=== PATIENT | female | born 1990 | race Caucasian/White ===

== ENCOUNTER 2016-06-17 09:46 | Emergency (ER) | payer OTHER ==
[~2016-06-17] VITALS: Ht 157.5 cm; Wt 61.2 kg
[~2016-06-17 09:46] MED LIST: CIPRO 500MG TA500 MG PO; DEPO-PROVER150 MG/ML IM; FLU VACCINE 0.0.5 ML IM; IBU800 MG PO; IBUPROFEN800 MG PO; LATUDA40 M1 PO; OMEPRAZOLE40 MG PO; PERCOCET 325 MG1 TA2 PO; PRENATAL VITAMI1 TAB PO; PRENATAL1 TA2 PO; VISTARIL50 MG PO; ZOFRAN ODT4 MG PO
[2016-06-17 09:51] VITALS: BP 113/75
--- NOTE | 2016-06-17 10:05 | ED NECK/BACK PAIN COMPLAINT ---
History of Present Illness General Chief Complaint: Low Back Pain/Injury Stated Complaint: LBP/CHRONIC Source: patient Exam Limitations: no limitations Vital Signs & Intake/Output Vital Signs & Intake/Output Vital Signs Date Time Temp Pulse Resp B/P Pulse O2 O2 Flow FiO2 Ox Delivery Rate 06/17 0951 98.8 109 18 113/75 97 Room Air Room Air Allergies Coded Allergies: midazolam (SEVERE EMOTIONAL REACTION PER PT REPORT 09/01/15) Reconcile Medications Cyclobenzaprine HCl 10 MG TABLET 1 TAB PO QPM PRN muscle spasms LURASIDONE HCL (Latuda) 40 MG TAB 1 TAB PO QPM MENTAL HEALTH (Reported) Oxycodone HCl/Acetaminophen (Percocet 5-325 MG Tablet) 5 MG-325 MG TABLET 1 TAB PO BID PRN pain Triage Note: TRIAGE: 26 Y/O FEMALE PRESENTS C/O 9/10 LOWER BACK PAIN X2 DAYS, WORSENING LAST NIGHT AFTER DANCING. REPORTS UNABLE TO LIFT SON THIS MORNING. * TEARS NOTED IN TRIAGE. Triage Nurses Notes Reviewed? yes : No Patient currently breastfeeds: No HPI: 26-year-old female arrived to triage to room 1 complaining of left low back pain has been worse the past 2 days. She reports that she has had the pain in the past intermittently for years and has never been seen or evaluated when the pain has come. She reports it is an achy, tightness, crampy type pain left lower back that was exacerbated by dancing last night and sitting in a car backed chair. She has been taking ibuprofen 800 mg for the past couple days with no relief. She lifted her son this morning which caused an increase in pain so she is here for evaluation. The pain is moderate to severe with no radiation. She denies any numbness, tingling, incontinence. Martha says that the pain is worse with bending twisting. Has been using rice packs with some relief. Past History Travel History Traveled to [place] past 21 day No Medical History Any Pertinent Medical History? 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 No Review of Systems Review of Systems Constitutional: Reports: no symptoms. Eyes: Reports: no symptoms. Ears, Nose, Throat, Mouth: Reports: no symptoms. Respiratory: Reports: no symptoms. Cardiovascular: Reports: no symptoms. Gastrointestinal/Abdominal: Reports: no symptoms. Musculoskeletal: Reports: see HPI, back pain. Skin: Reports: no symptoms. Neurological/Psychological: Reports: no symptoms. All Other Systems: Reviewed and Negative Physical Exam Physical Exam General Appearance: well developed/nourished, mild distress Head: atraumatic Eyes: Bilateral: PERRL, EOMI. Ears, Nose, Throat, Mouth: hearing grossly normal Neck: normal inspection, supple, full range of motion, normal alignment Respiratory: normal breath sounds, chest non-tender, no respiratory distress Cardiovascular: regular rate/rhythm Peripheral Pulses: 2+ radial (R), 2+ radial (L), 2+ tibialis posterior (R), 2+ tibialis posterior ( L), 2+ dorsalis pedis (R), 2+ dorsalis pedis (L) Gastrointestinal: soft, non-tender Back: normal inspection, muscle spasm (left low back see diagram) Extremities: normal range of motion Straight Leg Raising: Right: Negative. Left: Negative. Neurologic/Psych: awake, alert, oriented x 3, normal mood/affect Skin: intact, normal color, warm/dry Diagram Body: 1) Tenderness to palpation Progress Differential Diagnosis: myofascial strain Plan of Care: Current Medications Sig/Naa Start time Last Medication Dose Stop Time Status Admin Ketorolac 60 MG ONCE ONE 06/17 1015 UNVr Tromethamine 06/17 1016 (Toradol) Comments: Flexeril, Percocet and ibuprofen as needed for pain and muscle spasms she will continue the use of rice packs and heat to area and follow-up with her primary care provider this week. Martha does not display any neurological deficits or concerns in relation to her back pain. Departure Departure Time of Disposition: 1016 Disposition: HOME OR SELF CARE Condition: Stable Clinical Impression Primary Impression: Low back pain Qualifiers: Chronicity: acute Back pain laterality: left Sciatica presence: without sciatica Qualified Code: M54.5 - Low back pain Referrals: MELANIE PACE (PCP/Family) Additional Instructions: Please follow up with Melanie Pace APRN this week. Please continue ibuprofen 600-800 mg 3 times a day as needed for mild to moderate pain. Please take with food. Flexeril 10 mg to take at night only as needed for muscle spasms. Percocet twice a day as needed for more severe pain. Please do not drive or operate any machinery while taking Flexeril or Percocet. Please return to the emergency department for any worsening or concerning symptoms. Departure Forms: Customer Survey General Discharge Information Prescriptions: Current Visit Scripts Cyclobenzaprine HCl 1 TAB PO QPM PRN muscle spasms #6 TAB Oxycodone HCl/Acetaminophen (Percocet 5-325 MG Tablet) 1 TAB PO BID PRN pain #10 TAB
[2016-06-17] MEDS ORDERED: CYCLOBENZAPRINE10 M1 PO (10:17)
[2016-06-17] MEDS ORDERED: PERCOCET 5-3251 EACH PO (10:17)
== END 2016-06-17 10:28 ==
LOC: ERH 09:46
DX: M54.5 Low back pain (principal)
CPT/HCPCS: 96372; J1885

== ENCOUNTER 2016-09-07 12:36 | Emergency (ER) | payer OTHER ==
[~2016-09-07] VITALS: Ht 157.5 cm; Wt 62.6 kg
[~2016-09-07 12:36] MED LIST changes: +CYCLOBENZAPRINE10 M1 PO; +PERCOCET 5-3251 EACH PO
--- NOTE | 2016-09-07 13:27 | ED GI/GU/ABDOMINAL COMPLAINT ---
History of Present Illness General Chief Complaint: Abdominal Pain/Flank Pain Stated Complaint: VOMITTING,ABD PAIN Allergies Coded Allergies: midazolam (SEVERE EMOTIONAL REACTION PER PT REPORT 09/01/15) Reconcile Medications Cyclobenzaprine HCl 10 MG TABLET 1 TAB PO QPM PRN muscle spasms LURASIDONE HCL (Latuda) 40 MG TAB 1 TAB PO QPM MENTAL HEALTH (Reported) Oxycodone HCl/Acetaminophen (Percocet 5-325 MG Tablet) 5 MG-325 MG TABLET 1 TAB PO BID PRN pain Triage Note: PT TO ED FOR ABD PAIN RADIATING TO HER BACK AND VOMITING X 3 DAYS, SEEN AT [facility] AND WAS REFERRED TO ED FOR R/O APPENDICITIS. 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 Tetanus Vaccine: 07/25/15 Surgical History Surgical History: none Psychosocial History Who do you live with Friend What is your primary language Belizean Tobacco Use: Current Daily Use Daily Tobacco Use Amount/Type: => 5 Cigarettes daily ETOH Use: denies use Illicit Drug Use: denies illicit drug use Family History Family History, If Any: BROTHER FHx: bipolar disorder MOTHER FHx: depression Progress Plan of Care: Orders Procedure Date/time Status LIPASE 09/07 1328 Active COMPREHENSIVE METABOLIC PANEL 09/07 1328 Active CBC WITHOUT DIFFERENTIAL 09/07 1328 Active URINE 09/07 1304 Complete URINALYSIS 09/07 1304 Complete Laboratory Tests 09/07/16 1300: Urine Color YEL, Urine Clarity CLEAR, Urine pH 6.0, Ur Specific [place] 1.010, Urine Protein NEG, Urine Ketones NEG, Urine Nitrite NEG, Urine Bilirubin NEG, Urine Urobilinogen 0.2, Ur Leukocyte Esterase NEG, Ur Microscopic EXAM NOT REQUIRED, Urine Hemoglobin NEG, Urine Glucose NEG, Urine Test NEGATIVE Departure Departure Condition: Stable Referrals: HANK PACE (PCP/Family) Departure Forms: Customer Survey General Discharge Information
--- NOTE | 2016-09-07 13:41 | ED GI/GU/ABDOMINAL COMPLAINT ---
History of Present Illness General Chief Complaint: Abdominal Pain/Flank Pain Stated Complaint: VOMITTING,ABD PAIN Source: patient, old records Exam Limitations: no limitations Vital Signs & Intake/Output Vital Signs & Intake/Output Vital Signs Date Time Temp Pulse Resp B/P Pulse O2 O2 Flow FiO2 Ox Delivery Rate 09/07 1639 96.9 94 18 135/92 98 Room Air 09/07 1330 97.4 72 20 109/72 97 Room Air Allergies Coded Allergies: midazolam (SEVERE EMOTIONAL REACTION PER PT REPORT 09/01/15) Reconcile Medications Hyoscyamine (Levsin) 0.125 MG TABLET 1 TAB PO Q4 PRN ABDOMINAL DISCOMFORT Lurasidone HCl (Latuda) 40 MG TABLET 1 TAB PO QPM MENTAL HEALTH (Reported) Ondansetron (Zofran Odt) 4 MG TAB.RAPDIS 1 TAB SL TID PRN NAUSEA Triage Note: PT TO ED FOR ABD PAIN RADIATING TO HER BACK AND VOMITING X 3 DAYS, SEEN AT [facility] AND WAS REFERRED TO ED FOR R/O APPENDICITIS. Triage Nurses Notes Reviewed? yes ? n Is pt currently ? No Onset: Gradual Timing: no prior history Quality/Severity: moderate, sharpness Severity Numbers: 8 Location: generalized abdomen, right lower quadrant Radiation: RLQ Activities at Onset: none Prior Abdominal Problems: none Past Sexual History: Unobtainable at this time No Modifying Factors: none Modifying Factors: Worsens With: palpation. HPI: Patient is a 26-year-old female presenting to the emergency department with chief complaint of periumbilical and right lower quadrant abdominal pain mostly going on for the past 24 hours. She reports associated nausea or vomiting. This preceded by diarrhea. Diarrhea was nonbloody and nonbilious. Last bowel movement was this morning and normal. Denies any urinary frequency or urgency or dysuria. Denies fevers or chills. She saw her FIRE TRUCK DRIVER today who did a transvaginal and transabdominal ultrasound will told her everything looked well and told her to the emergency department to rule out appendicitis. Denies taking anything at home to help with symptoms. Nothing seems to make it better or worse. No sick contacts or recent travel. No recent antibiotic use. (KAROLINE LAWLER,LINDA) Past History Travel History Traveled to [place] past 21 day No Medical History Any Pertinent Medical History? 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 No (LINDA MILLER) Review of Systems Review of Systems Constitutional: Reports: no symptoms. Comments Review of systems: See HPI, All other systems negative. Constitutional, no chills fever or weight loss HEENT: No visual changes no sore throat no congestion Cardiovascular: No chest pain ,palpitation , orthopnea or ankle swelling Skin, no jaundice no rashes Respiratory: No dyspnea cough sputum or hemoptysis GI: Positive nausea, vomiting, diarrhea : No dysuria No hematuria Muscle skeletal: no back pain, no neck pain, Neurologic: No numbness no confusion NO LAN Psych: No stress anxiety or depression,. Heme/endocrine: No bruising no bleeding no polyuria or polydipsia Immunology: No splenectomy or history of AIDS (LINDA MILLER) Physical Exam Physical Exam General Appearance: well developed/nourished, no apparent distress, alert, awake , comfortable Gastrointestinal: normal bowel sounds, soft, tenderness Comments: Well-developed well-nourished person in no acute distress HEENT: Pupils equally round and reactive to light and accommodation. Nose is atraumatic. Neck: Normal inspection Back: Nontender, no CVA tenderness. Full range of motion Cardiovascular: Regular rate and rhythms no murmurs rubs or gallops, normal JVP Respiratory: Chest nontender. No respiratory distress.breath sounds clear to auscultation bilaterally Abdomen: Soft, tender to palpation in the periumbilical region, also right lower quadrant tenderness, mild guarding, no rebound tenderness. Positive psoas sign, Rovsing nontender to palpation over McBurney's point. Nondistended, no appreciable organomegaly. Normal bowel sounds. No ascites Extremity: No edema Neuro: Alert oriented x3 Skin: No appreciable rash on exposed skin, skin is warm and dry. Psych: Mood and affect is normal, memory and judgment is normal. Core Measures ACS in differential dx? No Severe Sepsis Present: No Septic Shock Present: No (KAROLINE LAWLER,LINDA) Progress Differential Diagnosis: appendicitis, biliary colic, diverticulitis, gastritis, ischemic bowel, inflamm bowel dis, ovarian cyst, ovarian torsion, pancreatitis, UTI/pyelo Plan of Care: Orders Procedure Date/time Status Add-on Test (ER Only) 09/07 1422 Active C-REACTIVE PROTEIN 09/07 1348 Complete LIPASE 09/07 1328 Complete COMPREHENSIVE METABOLIC PANEL 09/07 1328 Complete CBC WITHOUT DIFFERENTIAL 09/07 1328 Complete URINE 09/07 1304 Complete URINALYSIS 09/07 1304 Complete Laboratory Tests 09/07/16 1348: Anion Gap 8, Estimated GFR > 60, BUN/Creatinine Ratio 18.3, Glucose 77, Calcium 9.8, Total Bilirubin 0.6, AST 15, ALT 30, Alkaline Phosphatase 67, C-Reactive Prot, Quant < 0.5, Total Protein 7.2, Albumin 4.5, Globulin 2.7, Albumin/ Globulin Ratio 1.7, Lipase 77, CBC w Diff NO MAN DIFF REQ, RBC 5.12, MCV 87.6, MCH 29.6, RDW 12.7, MPV 8.8, Gran % 71.2, Lymphocytes % 22.8, Monocytes % 4.5, Eosinophils % 0.9, Basophils % 0.6, Absolute Granulocytes 6.2, Absolute Lymphocytes 2.0, Absolute Monocytes 0.4, Absolute Eosinophils 0.1, Absolute Basophils 0.1, PUBS MCHC 33.8 09/07/16 1300: Urine Color YEL, Urine Clarity CLEAR, Urine pH 6.0, Ur Specific [place] 1.010, Urine Protein NEG, Urine Ketones NEG, Urine Nitrite NEG, Urine Bilirubin NEG, Urine Urobilinogen 0.2, Ur Leukocyte Esterase NEG, Ur Microscopic EXAM NOT REQUIRED, Urine Hemoglobin NEG, Urine Glucose NEG, Urine Test NEGATIVE Diagnostic Imaging: Viewed by Me: CT Scan. Discussed w/RAD: CT Scan. Radiology Impression: PATIENT: CLAYTON GILL PRESENT AGE: 26 PATIENT ACCOUNT NO: [id number] : 91 LOCATION: [facility] ORDERING PHYSICIAN: LINDA LAWLER SERVICE DATE: 09/07/16 EXAM TYPE: CAT - CT ABD & PELVIS W IV CONTRAST EXAMINATION: CT ABDOMEN AND PELVIS WITH CONTRAST CLINICAL INFORMATION: Right lower quadrant abdominal pain. Evaluate for acute appendicitis. COMPARISON: None. TECHNIQUE: Multidetector volumetric imaging was performed of the abdomen and pelvis before and after the IV administration of 94 mL of Optiray 320 intravenous contrast. Sagittal and coronal reformatted images were obtained on the technologist's workstation. DLP: 259 mGy-cm FINDINGS: LUNG BASES: The visualized lung bases are unremarkable. LIVER, GALLBLADDER, AND BILIARY TREE: Evaluation of the liver parenchyma is notable for a 6 mm hypoattenuating nodule within the medial segment of the right hepatic lobe. This finding is incompletely characterized on this examination but may reflect a simple hepatic cyst. The liver is otherwise normal in size, shape, and attenuation. No biliary ductal dilatation is present. The gallbladder is unremarkable with no evidence of radiopaque gallstones, gallbladder wall thickening, or obvious pericholecystic inflammatory changes. PANCREAS: Unremarkable. SPLEEN: Unremarkable. ADRENAL GLANDS: Unremarkable. KIDNEYS AND URETERS: The kidneys are normal in size, shape, and attenuation. No hydronephrosis, hydroureter, or calculi seen. No perinephric stranding. BLADDER: Unremarkable. GASTROINTESTINAL TRACT: Normal anatomic orientation of the stomach relative to the duodenum. Normal caliber of abdominal and pelvic bowel loops, without evidence of obstruction or ileus. No circumferential bowel wall thickening with surrounding inflammatory changes to suggest an underlying infectious or inflammatory enterocolitis. Normal-appearing appendix within the right lower quadrant of the abdomen. No organizing intra-abdominal fluid collections or free intraperitoneal air. ABDOMINAL WALL: No significant hernia is appreciated. LYMPH NODES: No significant abdominal or pelvic adenopathy. VASCULAR: Patent abdominal vasculature. Normal course and caliber of the abdominal aorta and its branching vessels, without aneurysmal dilatation. PELVIC VISCERA: An intrauterine device is present within the endometrial cavity and appears appropriately positioned. There are subcentimeter hypoattenuating structures within the bilateral ovaries which may reflect ovarian cysts. A calcification along the right lateral aspect of the vagina is favored to represent a pelvic phlebolith. OSSEOUS STRUCTURES: No acute osseous abnormality. Normal alignment of the imaged thoracolumbar spine. IMPRESSION: No acute findings within the abdomen or pelvis to explain patient symptomatology. There is a normal-appearing appendix within the right lower quadrant of the abdomen. An intrauterine device is present within the endometrial canal and appears appropriately positioned. There are several small hypoattenuating structures within the bilateral ovaries which may reflect small ovarian cysts. No renal, ureteral or bladder stones are identified. DICTATED BY: NINFA GARCIA MD DATE/ TIME DICTATED:09/07/161533 COOK CANDY:VI DATE/TIME TRANSCRIBED: 09/07/161533 CONFIDENTIAL, DO NOT COPY WITHOUT APPROPRIATE AUTHORIZATION. < Electronically signed in Other Vendor System> SIGNED BY: NINFA GARCIA MD 09/07/16 1542 Initial ED EKG: none Comments: 09/07/2016 1:57:38 PM around patient is afebrile in no acute distress, she does have reproducible periumbilical and right lower quadrant tenderness to palpation. Medicated with IV fluids, IV Toradol. Declining nausea medication and time. Patient has CBC, CMP, CRP ordered. Pending labs patient may need CT scan. 09/07/2016 2:58:15 PM patient informed of all lab work results. Scnalon score is currently 4 meeting less likely to be appendicitis. Patient reporting worsening pain after Toradol and fluids. Patient will go for CT scan to rule out acute appendicitis. 09/07/2016 4:14:12 PM patient informed all lab results and imaging study results. Feeling better after morphine. Likely gastroenteritis. Patient will be treated symptomatically and follow with PCP. Educated on signs and symptoms TO return. (KAROLINE LAWLER,LINDA) Departure Departure Time of Disposition: 1609 Disposition: HOME OR SELF CARE Condition: Stable Clinical Impression Primary Impression: Gastroenteritis Referrals: HANK PACE (PCP/Family) Additional Instructions: Follow-up with your primary care physician call to make an appointment. Increase fluids. Clear liquid diet for the next 24-48 hours. Take Levsin and Zofran as prescribed with your symptoms. Return for worsening symptoms or concerns. Attaches a copy of her CAT scan results. ATIENT: CLAYTON GILL Wilmer PRESENT AGE: 26 PATIENT ACCOUNT NO: [id number] : 91 LOCATION: [facility] ORDERING PHYSICIAN: LINDA LAWLER SERVICE DATE: 09/07/16 EXAM TYPE: CAT - CT ABD & PELVIS W IV CONTRAST EXAMINATION: CT ABDOMEN AND PELVIS WITH CONTRAST CLINICAL INFORMATION: Right lower quadrant abdominal pain. Evaluate for acute appendicitis. COMPARISON: None. TECHNIQUE: Multidetector volumetric imaging was performed of the abdomen and pelvis before and after the IV administration of 94 mL of Optiray 320 intravenous contrast. Sagittal and coronal reformatted images were obtained on the technologist's workstation. DLP: 259 mGy-cm FINDINGS: LUNG BASES: The visualized lung bases are unremarkable. LIVER, GALLBLADDER, AND BILIARY TREE: Evaluation of the liver parenchyma is notable for a 6 mm hypoattenuating nodule within the medial segment of the right hepatic lobe. This finding is incompletely characterized on this examination but may reflect a simple hepatic cyst. The liver is otherwise normal in size, shape, and attenuation. No biliary ductal dilatation is present. The gallbladder is unremarkable with no evidence of radiopaque gallstones, gallbladder wall thickening, or obvious pericholecystic inflammatory changes. PANCREAS: Unremarkable. SPLEEN: Unremarkable. ADRENAL GLANDS: Unremarkable. KIDNEYS AND URETERS: The kidneys are normal in size, shape, and attenuation. No hydronephrosis, hydroureter, or calculi seen. No perinephric stranding. BLADDER: Unremarkable. GASTROINTESTINAL TRACT: Normal anatomic orientation of the stomach relative to the duodenum. Normal caliber of abdominal and pelvic bowel loops, without evidence of obstruction or ileus. No circumferential bowel wall thickening with surrounding inflammatory changes to suggest an underlying infectious or inflammatory enterocolitis. Normal-appearing appendix within the right lower quadrant of the abdomen. No organizing intra-abdominal fluid collections or free intraperitoneal air. ABDOMINAL WALL: No significant hernia is appreciated. LYMPH NODES: No significant abdominal or pelvic adenopathy. VASCULAR: Patent abdominal vasculature. Normal course and caliber of the abdominal aorta and its branching vessels, without aneurysmal dilatation. PELVIC VISCERA: An intrauterine device is present within the endometrial cavity and appears appropriately positioned. There are subcentimeter hypoattenuating structures within the bilateral ovaries which may reflect ovarian cysts. A calcification along the right lateral aspect of the vagina is favored to represent a pelvic phlebolith. OSSEOUS STRUCTURES: No acute osseous abnormality. Normal alignment of the imaged thoracolumbar spine. IMPRESSION: No acute findings within the abdomen or pelvis to explain patient symptomatology. There is a normal-appearing appendix within the right lower quadrant of the abdomen. An intrauterine device is present within the endometrial canal and appears appropriately positioned. There are several small hypoattenuating structures within the bilateral ovaries which may reflect small ovarian cysts. No renal, ureteral or bladder stones are identified. DICTATED BY: NINFA GARCIA MD DATE/TIME DICTATED:09/07/161533 COOK CANDY:VI DATE/TIME TRANSCRIBED:09/07/161533 CONFIDENTIAL, DO NOT COPY WITHOUT APPROPRIATE AUTHORIZATION. <Electronically signed in Other Vendor System> SIGNED BY: NINFA GARCIA MD 09/07/16 0299 Departure Forms: Customer Survey General Discharge Information Prescriptions: Current Visit Scripts Hyoscyamine (Levsin) 1 TAB PO Q4 PRN ABDOMINAL DISCOMFORT #40 TAB Ondansetron (Zofran Odt) 1 TAB SL TID PRN NAUSEA #10 TAB (LINDA MILLER) PA/WEB CONTENT DEVELOPER Co-Sign Statement Statement: ED Attending supervision documentation- [] I saw and evaluated the patient. I have also reviewed all the pertinent lab results and diagnostic results. I agree with the findings and the plan of care as documented in the PA's/WEB CONTENT DEVELOPER's documentation. [X] I have reviewed the ED Record and agree with the PA's/WEB CONTENT DEVELOPER's documentation. [] Additions or exceptions (if any) to the PAs/WEB CONTENT DEVELOPER's note and plan are summarized below: [] (AUDELIA HERZOG,TRISTIN Mendez)
[2016-09-07 14:02] LABS: ABSOLUTE BASOPHIL COUNT 0.1 /CUMM (0.0-0.2); ABSOLUTE EOSINOPHIL COUNT 0.1 /CUMM (0.0-0.7); ABSOLUTE GRANULOCYTE CT 6.2 /CUMM (1.4-6.5); ABSOLUTE MONOCYTE COUNT 0.4 /CUMM (0.10-0.60); BASOPHIL % 0.6 % (0.0-2.0); EOSINOPHIL % 0.9 % (0-5); GRANULOCYTE % 71.2 % (42.2-75.2); HEMATOCRIT 44.9 % (37-47); MEAN CORPUSCULAR HGB 29.6 PG (27.0-31.0); MEAN CORPUSCULAR HGB CONC 33.8 G/DL (33.0-37.0); MEAN CORPUSCULAR VOLUME 87.6 FL (81.0-99.0); MEAN PLATELET VOLUME 8.8 FL (7.4-10.4); PLATELET COUNT 229 /CUMM (130-400); RBC DISTRIBUTION WIDTH 12.7 % (11.5-14.5); RED BLOOD CELL CT 5.12 /CUMM (4.20-5.40); WHITE BLOOD CELL COUNT 8.8 /CUMM (4.8-10.8)
--- NOTE | 2016-09-07 15:42 | CT SCAN REPORT ---
EXAMINATION: CT ABDOMEN AND PELVIS WITH CONTRAST CLINICAL INFORMATION: Right lower quadrant abdominal pain. Evaluate for acute appendicitis. COMPARISON: None. TECHNIQUE: Multidetector volumetric imaging was performed of the abdomen and pelvis before and after the IV administration of 94 mL of Optiray 320 intravenous contrast. Sagittal and coronal reformatted images were obtained on the technologist's workstation. DLP: 259 mGy-cm FINDINGS: LUNG BASES: The visualized lung bases are unremarkable. LIVER, GALLBLADDER, AND BILIARY TREE: Evaluation of the liver parenchyma is notable for a 6 mm hypoattenuating nodule within the medial segment of the right hepatic lobe. This finding is incompletely characterized on this examination but may reflect a simple hepatic cyst. The liver is otherwise normal in size, shape, and attenuation. No biliary ductal dilatation is present. The gallbladder is unremarkable with no evidence of radiopaque gallstones, gallbladder wall thickening, or obvious pericholecystic inflammatory changes. PANCREAS: Unremarkable. SPLEEN: Unremarkable. ADRENAL GLANDS: Unremarkable. KIDNEYS AND URETERS: The kidneys are normal in size, shape, and attenuation. No hydronephrosis, hydroureter, or calculi seen. No perinephric stranding. BLADDER: Unremarkable. GASTROINTESTINAL TRACT: Normal anatomic orientation of the stomach relative to the duodenum. Normal caliber of abdominal and pelvic bowel loops, without evidence of obstruction or ileus. No circumferential bowel wall thickening with surrounding inflammatory changes to suggest an underlying infectious or inflammatory enterocolitis. Normal-appearing appendix within the right lower quadrant of the abdomen. No organizing intra-abdominal fluid collections or free intraperitoneal air. ABDOMINAL WALL: No significant hernia is appreciated. LYMPH NODES: No significant abdominal or pelvic adenopathy. VASCULAR: Patent abdominal vasculature. Normal course and caliber of the abdominal aorta and its branching vessels, without aneurysmal dilatation. PELVIC VISCERA: An intrauterine device is present within the endometrial cavity and appears appropriately positioned. There are subcentimeter hypoattenuating structures within the bilateral ovaries which may reflect ovarian cysts. A calcification along the right lateral aspect of the vagina is favored to represent a pelvic phlebolith. OSSEOUS STRUCTURES: No acute osseous abnormality. Normal alignment of the imaged thoracolumbar spine. IMPRESSION: No acute findings within the abdomen or pelvis to explain patient symptomatology. There is a normal-appearing appendix within the right lower quadrant of the abdomen. An intrauterine device is present within the endometrial canal and appears appropriately positioned. There are several small hypoattenuating structures within the bilateral ovaries which may reflect small ovarian cysts. No renal, ureteral or bladder stones are identified.
[2016-09-07] MEDS ORDERED: LEVSIN0.125 M1 PO (16:10)
[2016-09-07] MEDS ORDERED: ZOFRAN ODT4 M1 SL (16:10)
[2016-09-07 16:39] VITALS: BP 135/92
== END 2016-09-07 16:49 ==
LOC: ERH 12:36
PROVIDERS: Physician Assistant
DX: K52.9 Noninfective gastroenteritis and colitis, unspecified (principal)
CPT/HCPCS: 74177; 81003; 81025; 96374; 96375; J1885; J2405

== ENCOUNTER 2016-09-10 10:08 | Emergency (ER) | payer OTHER ==
[~2016-09-10] VITALS: Ht 157.5 cm; Wt 62.7 kg
[~2016-09-10 10:08] MED LIST changes: +LEVSIN0.125 M1 PO; +ZOFRAN ODT4 M1 SL
[2016-09-10 11:55] LABS: ABSOLUTE BASOPHIL COUNT 0 /CUMM (0.0-0.2); ABSOLUTE EOSINOPHIL COUNT 0.2 /CUMM (0.0-0.7); ABSOLUTE GRANULOCYTE CT 4.6 /CUMM (1.4-6.5); ABSOLUTE LYMPH COUNT 1.5 /CUMM (1.2-3.4); ABSOLUTE MONOCYTE COUNT 0.2 /CUMM (0.10-0.60); BASOPHIL % 0.4 % (0.0-2.0); EOSINOPHIL % 2.5 % (0-5); GRANULOCYTE % 70.3 % (42.2-75.2); HEMATOCRIT 42.3 % (37-47); MEAN CORPUSCULAR HGB 29.6 PG (27.0-31.0); MEAN CORPUSCULAR HGB CONC 33.7 G/DL (33.0-37.0); PLATELET COUNT 215 /CUMM (130-400); RBC DISTRIBUTION WIDTH 12.9 % (11.5-14.5); RED BLOOD CELL CT 4.81 /CUMM (4.20-5.40); WHITE BLOOD CELL COUNT 6.6 /CUMM (4.8-10.8)
--- NOTE | 2016-09-10 11:57 | ED GI/GU/ABDOMINAL COMPLAINT ---
History of Present Illness General Chief Complaint: Abdominal Pain/Flank Pain Stated Complaint: ABD PAIN, +NV, SEEN HERE 09/07 FOR SAME Source: patient Exam Limitations: no limitations Vital Signs & Intake/Output Vital Signs & Intake/Output Vital Signs Date Time Temp Pulse Resp B/P Pulse O2 O2 Flow FiO2 Ox Delivery Rate 09/10 1444 98.7 71 18 123/77 97 Room Air ED Intake and Output 09/11 0000 09/10 1200 Intake Total Output Total Balance Patient 138 lb Weight Allergies Coded Allergies: midazolam (SEVERE EMOTIONAL REACTION PER PT REPORT 09/10/16) Triage Note: TRIAGE: PT TO ER C/C PAIN UNDER RT RIB AND INTO BACK SINCE SUNDAY. +N/V AFTER EATING. SEEN AT HER MD ON SUNDAY AND WAS REFFERRED TO ER TO R/O APPENDICITIS. SEEN HERE ON SUNDAY AND WAS TOLD SHE HAD THE STOMACH BUG. REPORTS INCREASED URINARY FREQUENCY BUT DENIES ANY PAIN. DENIES DIARRHEA. LNBM THIS MORNING. LMP 01/2016, HAS IUD. Triage Nurses Notes Reviewed? yes ? N Is pt currently ? No HPI: This patient is a 26-year-old female who presented to the emergency department today for evaluation of abdominal pain. The patient reported that she was seen here on September 07 for evaluation of abdominal pain around her navel. She reported that prior to coming to the emergency department she saw her COMMUNICATIONS TOWER TECHNICIAN where she had a transvaginal ultrasound, blood work, a pelvic examination, and swabs sent off. All of her imaging and testing was unremarkable. She was sent to the emergency department to rule out appendicitis. She was diagnosed with a GI bug and sent home with [facility]. The patient reported that since that time she has been unable to keep down any food or drink. Even with the medication she throws everything up. She only has pain when she eats food. She only has nausea and vomiting when she tries to eat or drink anything. She reported that the pain is now located under her right rib cage and wraps around to her right upper back. The patient reported that she has noticed urinary frequency but no urgency, blood in the urine, or urinary burning. The patient denied any chest pain, difficult breathing, fevers. She did report chills. No constipation or diarrhea. (CECILE VALDOVINOS,MOODY) Reconcile Medications Metoclopramide HCl (Reglan) 10 MG TABLET 1 TAB PO 4 TIMES/DAY PRN NAUSEA/ VOMITING 30 minutes before meals and bedtime Naproxen (Naprosyn) 500 MG TABLET 1 TAB PO BID PRN PAIN (MITCHELL HERZOG,KATHRINE) Past History Travel History Traveled to [place] past 21 day No Medical History Any Pertinent Medical History? 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 No (MOODY HUBER PA-C) Review of Systems Review of Systems Constitutional: Reports: see HPI. EENTM: Reports: no symptoms. Respiratory: Reports: no symptoms. Cardiovascular: Reports: no symptoms. GI: Reports: see HPI. Genitourinary: Reports: no symptoms. Musculoskeletal: Reports: no symptoms. Skin: Reports: no symptoms. Neurological/Psychological: Reports: no symptoms. All Other Systems: Reviewed and Negative (MOODY HUBER PA-C) Physical Exam Physical Exam Gastrointestinal: normal bowel sounds, soft, ORGANOMEGALY. nONDISTENDED. nO MASSES APPRECIATED. tYMPANIC TO PERCUSSION IN ALL 4 QUADRANTS. tENDERNESS TO PALPATION IN THE RIGHT UPPER QUADRANT. pOSITIVE Rehman SIGN. nO mCbURNEY'S POINT TENDERNESS. nEGATIVE rOVSING SIGN. nEGATIVE PSOAS SIGN. Comments: Well-developed well-nourished person in no acute distress HEENT: Normal EENT exam, head normocephalic/atraumatic, moist mucous membranes Neck: Supple, no lymphadenopathy Back: Normal inspection. No CVA tenderness Cardiovascular: Regular rate and rhythm with no murmurs, rubs, or gallops Respiratory: No respiratory distress. Breath sounds clear to auscultation bilaterally Extremity: Normal and equal pulses Neuro: Alert oriented x3, cranial nerves II through XII grossly intact. Skin: No appreciable rash on exposed skin, skin is warm and dry. Psych: Mood and affect is normal Core Measures ACS in differential dx? No Severe Sepsis Present: No Septic Shock Present: No (CECILE VALDOVINOS,MOODY) Progress Differential Diagnosis: AMI, appendicitis, biliary colic, bowel obstruction, colon cancer, cholecystitis, diverticulitis, ectopic , endometritis, gastritis, hepatitis, hernia, ischemic bowel, inflamm bowel dis, intrauterine , kidney stone, pancreatitis, PID/cervicitis, PUD/GERD, perforated viscous, threatened AB, UTI/pyelo Plan of Care: Laboratory Tests 09/10/16 1417: Lactic Acid Cancelled Diagnostic Imaging: Viewed by Me: Ultrasound. Discussed w/RAD: Ultrasound. Radiology Impression: PATIENT: CLAYTON GILL PRESENT AGE: 26 PATIENT ACCOUNT NO: [id number] : 91 LOCATION: [facility] ORDERING PHYSICIAN: MOODY HUBER PA-C SERVICE DATE: 09/10/16-1246 EXAM TYPE: US - US-COMPLETE ABDOMEN EXAMINATION: US ABDOMEN COMPLETE CLINICAL INFORMATION: Right upper quadrant pain radiating to back x1 week. Stomach bloating.. COMPARISON: None TECHNIQUE: Real-time imaging of the abdominal viscera. FINDINGS: PANCREAS: The visualized portions of the head and body of the pancreas are unremarkable. The tail is not well seen secondary to overlying bowel gas. ABDOMINAL AORTA: The proximal segment is normal in caliber. INFERIOR VENA CAVA: Visualized portions are normal. LIVER: Normal. The liver demonstrates normal size, contour and echogenicity. No focal lesion or intrahepatic biliary duct dilatation. GALLBLADDER: Normal. The gallbladder is physiologically distended without evidence of stones, sludge, polyps, wall thickening or pericholecystic fluid. COMMON BILE DUCT: Normal in caliber measuring 0.3 cm in diameter. RIGHT KIDNEY: Normal. No hydronephrosis. No renal calculi or focal parenchymal lesions. The kidney measures 10.4 cm in maximum dimension. LEFT KIDNEY: Normal. No hydronephrosis. No renal calculi or focal parenchymal lesions. The kidney measures 10.9 cm in maximum dimension. SPLEEN: Normal. The spleen measures 9.7 cm in maximum dimension. FREE FLUID: None. BLADDER: Bladder is unremarkable. Right and left ureteral jets are demonstrated. IMPRESSION: Unremarkable abdominal ultrasound. The bladder appears normal. DICTATED BY: ROBLES JIMENEZ MD DATE/TIME DICTATED:09/10/161449 HAND PATTERN MARKER:VOGEL DATE/TIME TRANSCRIBED:09/10/161449 CONFIDENTIAL, DO NOT COPY WITHOUT APPROPRIATE AUTHORIZATION. <Electronically signed in Other Vendor System> SIGNED BY: ROBLES JIMENEZ MD 09/10/161455 Initial ED EKG: none (MOODY HUBER PA-C) Departure Departure Disposition: HOME OR SELF CARE Condition: Stable Clinical Impression Primary Impression: Abdominal pain Qualifiers: Abdominal location: unspecified location Qualified Code: R10.9 - Unspecified abdominal pain Referrals: HANK PACE (PCP/Family) SHAHID HERZOG,JOSELYN Naranjo Additional Instructions: Continue to take previously prescribed medications as instructed. Please follow -up with quality improvement coordinator whose information has been provided to you in this packet. Return for any worsening symptoms or concerns. Departure Forms: Customer Survey General Discharge Information Prescriptions: Current Visit Scripts Metoclopramide HCl (Reglan) 1 TAB PO 4 TIMES/DAY PRN NAUSEA/VOMITING #15 TAB 30 minutes before meals and bedtime Naproxen (Naprosyn) 1 TAB PO BID PRN PAIN #15 TAB (MOODY HUBER PA-C) PA/ARTIFICIAL LOG MACHINE OPERATOR Co-Sign Statement Statement: ED Attending supervision documentation- [] I saw and evaluated the patient. I have also reviewed all the pertinent lab results and diagnostic results. I agree with the findings and the plan of care as documented in the PA's/ARTIFICIAL LOG MACHINE OPERATOR's documentation. [X] I have reviewed the ED Record and agree with the PA's/ARTIFICIAL LOG MACHINE OPERATOR's documentation. [] Additions or exceptions (if any) to the PAs/ARTIFICIAL LOG MACHINE OPERATOR's note and plan are summarized below: [] (MITCHELL HERZOG,KATHRINE) Metoclopramide HCl (Reglan) 1 TAB PO 4 TIMES/DAY PRN NAUSEA/VOMITING #15 TAB 30 minutes before meals and bedtime Naproxen (Naprosyn) 1 TAB PO BID PRN PAIN #15 TAB
[2016-09-10 14:44] VITALS: BP 123/77
--- NOTE | 2016-09-10 14:56 | ULTRASOUND REPORT ---
EXAMINATION: US ABDOMEN COMPLETE CLINICAL INFORMATION: Right upper quadrant pain radiating to back x1 week. Stomach bloating.. COMPARISON: None TECHNIQUE: Real-time imaging of the abdominal viscera. FINDINGS: PANCREAS: The visualized portions of the head and body of the pancreas are unremarkable. The tail is not well seen secondary to overlying bowel gas. ABDOMINAL AORTA: The proximal segment is normal in caliber. INFERIOR VENA CAVA: Visualized portions are normal. LIVER: Normal. The liver demonstrates normal size, contour and echogenicity. No focal lesion or intrahepatic biliary duct dilatation. GALLBLADDER: Normal. The gallbladder is physiologically distended without evidence of stones, sludge, polyps, wall thickening or pericholecystic fluid. COMMON BILE DUCT: Normal in caliber measuring 0.3 cm in diameter. RIGHT KIDNEY: Normal. No hydronephrosis. No renal calculi or focal parenchymal lesions. The kidney measures 10.4 cm in maximum dimension. LEFT KIDNEY: Normal. No hydronephrosis. No renal calculi or focal parenchymal lesions. The kidney measures 10.9 cm in maximum dimension. SPLEEN: Normal. The spleen measures 9.7 cm in maximum dimension. FREE FLUID: None. BLADDER: Bladder is unremarkable. Right and left ureteral jets are demonstrated. IMPRESSION: Unremarkable abdominal ultrasound. The bladder appears normal.
[2016-09-10] MEDS ORDERED: NAPROSYN500 M1 PO (15:09)
[2016-09-10] MEDS ORDERED: REGLAN10 M1 PO (15:09)
== END 2016-09-10 15:18 ==
LOC: ERH 10:08
PROVIDERS: Physician Assistant
DX: R10.11 Right upper quadrant pain (principal)
CPT/HCPCS: 81003; 81025; 87086; 87804; 87804-59; 96374; 96375; J1885; J2405; J2765

== ENCOUNTER 2016-11-05 18:07 | Emergency (ER) | payer OTHER ==
[~2016-11-05] VITALS: Ht 157.5 cm; Wt 62.6 kg
[~2016-11-05 18:07] MED LIST changes: +NAPROSYN500 M1 PO; +REGLAN10 M1 PO
[2016-11-05] MEDS ORDERED: PANTOPRAZOLE SO40 M1 PO (18:43)
[2016-11-05] MEDS ORDERED: CRYSELLE-28 TA1 EACH PO (18:43)
[2016-11-05] MEDS ORDERED: LEVSIN0.125 M1 PO (18:44)
--- NOTE | 2016-11-05 19:24 | ED NECK/BACK PAIN COMPLAINT ---
History of Present Illness General Chief Complaint: General Adult Stated Complaint: BACK PAIN, URINARY INCONTINENCE Source: patient Exam Limitations: no limitations Vital Signs & Intake/Output Vital Signs & Intake/Output Vital Signs Date Time Temp Pulse Resp B/P B/P Pulse O2 O2 Flow FiO2 Mean Ox Delivery Rate 11/05 2016 98.4 71 18 103/69 97 Room Air 11/05 2004 Room Air 11/05 1822 98.6 94 15 123/84 95 Room Air Room Air Allergies Coded Allergies: midazolam (SEVERE EMOTIONAL REACTION PER PT REPORT 11/05/16) Reconcile Medications Hyoscyamine (Levsin) 0.125 MG TABLET 1 TAB PO PRN ABD CRAMPS (Reported) Ketorolac Tromethamine 10 MG TABLET 1 TAB PO TID PRN PAIN RECEIVED IM IN ER Naproxen (Naprosyn) 500 MG TABLET 1 TAB PO BID PRN PAIN Norgestrel-Ethinyl Estradiol (Cryselle-28 Tablet) 0.3 MG-30 MCG TABLET 1 TAB PO DAILY CONTROL (Reported) Pantoprazole Sodium 40 MG TABLET.DR 1 TAB PO DAILY GI (Reported) Triage Note: PT TO ED FOR C/C OF LOW BACK PAIN THAT RADIATES INTO RIGHT LEG THAT STARTED THIS MORNING. DENIES TRAUMA. PT AMBULATORY IN TRIAGE. Triage Nurses Notes Reviewed? yes Onset: Gradual Duration: constant Timing: recent history Quality/Severity: severe, radiation Location: lumbar spine, paraspinous muscles Radiation: buttocks, upper legs, lower legs : No Patient currently breastfeeds: No HPI: Patient is a 26-year-old female who presents to emergency room with complaints of pain history of low back pain which she states muscle relaxer cyclobenzaprine which she took this medication today which she has noted today of worsening back pain where she denies any mechanism of injury or trauma and states that the pain was so bad that she felt the urge to urinate however due to patient's pain and limited range of motion and walking ability that she was unable to make it to the bathroom and she urinated on herself. Patient did provide urine prior to being evaluated where she was in control of her bladder. Denies any bowel or saddle paresthesia. Patient is complaining of chronic intermittent right lower extremity pain. (CINDY LAWLER,TONY) Past History Travel History Traveled to [place] past 21 day No Medical History Any Pertinent Medical History? 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 No (TONY DAS) Review of Systems Review of Systems Constitutional: Reports: no symptoms. Eyes: Reports: no symptoms. Ears, Nose, Throat, Mouth: Reports: no symptoms. Respiratory: Reports: no symptoms. Cardiovascular: Reports: no symptoms. Gastrointestinal/Abdominal: Reports: no symptoms. Musculoskeletal: Reports: see HPI, back pain, muscle pain. Skin: Reports: no symptoms. Neurological/Psychological: Reports: see HPI. All Other Systems: Reviewed and Negative (TONY DAS) Physical Exam Physical Exam General Appearance: no apparent distress, alert, comfortable Neck: normal inspection, supple Straight Leg Raising: Right: Pain at ____ degrees (45). Left: Pain at ____ degrees (45). Comments: Well-developed well-nourished person in no acute distress HEENT: Normal EENT exam, Neck: Supple, no lymphadenopathy, normal range of motion without pain or tenderness Back- normal inspection, bilateral paralumbar muscular point tenderness, decreased active range of motion noted Cardiovascular: Regular rate and rhythms no murmurs rubs or gallops, normal JVP Respiratory: Chest nontender. No respiratory distress.breath sounds clear to auscultation bilaterally Abdomen: Soft, nontender nondistended, no appreciable organomegaly. Normal bowel sounds. No ascites Extremity: No edema, no calf tenderness to palpation, normal and equal pulses. Bilateral lower extremity myotomes dermatomes DTRs intact Neuro: Alert oriented x3, motor sensory normal, No saddle paresthesia upon palpation Rectal tone intact Skin: No appreciable rash on exposed skin, skin is warm and dry. Psych: Mood and affect is normal, memory and judgment is normal. (TONY DAS) Progress Differential Diagnosis: AAA, aortic dissection, C spine injury, carotid dissection, cauda equina syn, herniated disc, myofascial strain, pyelo/UTI, sciatica, spinal cord inj, thoracic outlet syn, T/L spine injury, ureterolithiasis Plan of Care: Orders Procedure Date/time Status URINE 11/06 1827 Complete URINALYSIS 11/06 1827 Complete Laboratory Tests 11/05/16 1850: Urine Color YEL, Urine Clarity HAZY H, Urine pH 7.0, Ur Specific [place] 1.015, Urine Protein NEG, Urine Ketones NEG, Urine Nitrite NEG, Urine Bilirubin NEG, Urine Urobilinogen 0.2, Ur Leukocyte Esterase MOD H, Ur Microscopic SEDIMENT EXAMINED, Urine RBC RARE, Urine WBC 5-10 H, Ur Epithelial Cells MANY H, Urine Bacteria RARE H, Urine Hemoglobin NEG, Urine Glucose NEG, Urine Test NEGATIVE Patient on initial examination has concerns of low back pain and lumbar radiculopathy and due to patient stating that she has severe pain that limited her from ambulating to the bathroom where patient had the episode of urinating on herself rather than my suspicion of urinary incontinence is low. Patient was able to urinate voluntarily for a urine specimen in the emergency room. Patient had normal steady gait on examination. Patient did drive to the emergency room. 11/05/2016 8:14:46 PM patient currently is resting comfortably at bedside patient had significant improvement of symptoms with Decadron and ketorolac. CT scan currently is pending After CT scan was resulted patient does have noted herniations of L5-S1 however I did discuss with radiology about patient's symptoms and CT scan findings and which there is no concerns of CUADA EQUINA syndrome on exam or on the CT scan Discussed disposition plan with Dr. Holt who agrees. Patient was strongly advised to follow-up with primary care doctor and to provide the CT scan to patient's primary care doctor as instructed and discharge and plan. Upon discharge patient looks well no apparent distress and will comply with discharge instructions and had no questions Patient was strongly advised to return to emergency room symptoms worsen (CINDY LAWLER,TONY) Diagnostic Imaging: Viewed by Me: CT Scan. Discussed w/RAD: CT Scan. Radiology Impression: SEE COMMENTS Comments: PATIENT: CLAYTON GILL PRESENT AGE: 26 PATIENT ACCOUNT NO: [id number] : 91 LOCATION: [facility] ORDERING PHYSICIAN: TONY LAWLER SERVICE DATE: 11/05/16 EXAM TYPE: CAT - CT LUMB SPINE W IV CONTRAST EXAMINATION: CT LUMBAR SPINE WITH CONTRAST CLINICAL INFORMATION: Lower back pain. COMPARISON: CT abdomen and pelvis with contrast 09/07/2016. TECHNIQUE: Multiple axial CT images of the lumbar spine were performed following the intravenous administration of approximately 94 mL of Optiray 320. No adverse contrast reactions reported. 2-D coronal and sagittal reformatted images were obtained at the acquisition workstation. DLP: 312 mGy-cm FINDINGS: There are 5 nonrib-bearing lumbar vertebral bodies. No acute fracture or subluxation of the lumbar spine is identified. The anterior and posterior elements are grossly intact. 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 No organizing paravertebral fluid collections or masses are identified. Of note, there is a broad-based posterior disc protrusion at L5-S1 with moderate to severe spinal canal stenosis. There is also moderate narrowing of the left neuroforamina at L5-S1. The remaining neuroforamina appear to be grossly patent. IMPRESSION: 1. No acute fracture or subluxation of the lumbar spine. 2. Herniated disc at L5-S1. Specifically, there is a broad-based posterior disc protrusion at L5-S1, contributing to moderate left-sided neuroforaminal narrowing and moderate to severe spinal canal stenosis. 3. No visible organizing fluid collections within the paravertebral soft tissues or within the spinal canal. DICTATED BY: NINFA GARCIA MD DATE/TIME DICTATED:11/05/162009 CRANKSHAFT GRINDER:VI DATE/TIME TRANSCRIBED:11/05/162009 (CINDY LAWLER,TONY) Departure Departure Disposition: HOME OR SELF CARE Condition: Stable Clinical Impression Primary Impression: Lumbar radiculopathy Secondary Impressions: Herniation of lumbar intervertebral disc Referrals: HANK PACE (PCP/Family) TAMARA HERZOG,MARK Batista Additional Instructions: As discussed you have received Decadron in the emergency room for inflammation. Begin the prescription at ketorolac for pain and inflammation. Try to avoid bending from your back as this may worsen your symptoms. If symptoms worsen return to emergency room. Tomorrow please follow-up with your primary care doctor for further evaluation and treatment and possible physical therapy referral and please provide them with the CT scan obtained in the emergency room today. Prescription of ketorolac is waiting at [facility] pharmacy. If no better in one week follow-up with neurosurgeon Dr. MCDONALD Departure Forms: Customer Survey General Discharge Information Prescriptions: Current Visit Scripts Ketorolac Tromethamine 1 TAB PO TID PRN PAIN #15 TAB RECEIVED IM IN ER (CINDY LAWLER,TONY) PA/OUTSOLE CEMENTER MACHINE Co-Sign Statement Statement: ED Attending supervision documentation- [] I saw and evaluated the patient. I have also reviewed all the pertinent lab results and diagnostic results. I agree with the findings and the plan of care as documented in the PA's/OUTSOLE CEMENTER MACHINE's documentation. [x] I have reviewed the ED Record and agree with the PA's/OUTSOLE CEMENTER MACHINE's documentation. [] Additions or exceptions (if any) to the PAs/OUTSOLE CEMENTER MACHINE's note and plan are summarized below: [] (KAMRAN HERZOG,KIM Jesus)
[2016-11-05 20:17] VITALS: BP 103/69
--- NOTE | 2016-11-05 20:18 | CT SCAN REPORT ---
EXAMINATION: CT LUMBAR SPINE WITH CONTRAST CLINICAL INFORMATION: Lower back pain. COMPARISON: CT abdomen and pelvis with contrast 09/07/2016. TECHNIQUE: Multiple axial CT images of the lumbar spine were performed following the intravenous administration of approximately 94 mL of Optiray 320. No adverse contrast reactions reported. 2-D coronal and sagittal reformatted images were obtained at the acquisition workstation. DLP: 312 mGy-cm FINDINGS: There are 5 nonrib-bearing lumbar vertebral bodies. No acute fracture or subluxation of the lumbar spine is identified. The anterior and posterior elements are grossly intact. 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 No organizing paravertebral fluid collections or masses are identified. Of note, there is a broad-based posterior disc protrusion at L5-S1 with moderate to severe spinal canal stenosis. There is also moderate narrowing of the left neuroforamina at L5-S1. The remaining neuroforamina appear to be grossly patent. IMPRESSION: 1. No acute fracture or subluxation of the lumbar spine. 2. Herniated disc at L5-S1. Specifically, there is a broad-based posterior disc protrusion at L5-S1, contributing to moderate left-sided neuroforaminal narrowing and moderate to severe spinal canal stenosis. 3. No visible organizing fluid collections within the paravertebral soft tissues or within the spinal canal.
[2016-11-05] MEDS ORDERED: KETOROLAC TROME10 M1 PO (20:41)
== END 2016-11-05 20:51 ==
LOC: ERH 18:07
DX: M54.16 Radiculopathy, lumbar region (principal); M51.26 Other intervertebral disc displacement, lumbar region
CPT/HCPCS: 81001; 81025; 96374; 96375; J1885